=== PATIENT | female | born 1960 | race African-American/Black ===

== ENCOUNTER 2021-08-17 05:02 | Emergency (ER) | payer MEDICARE, MEDICAID ==
[~2021-08-17] VITALS: Ht 160 cm; Wt 80.0 kg
[2021-08-17] MEDS ORDERED: KETOROLAC 60MG/2ML VIAL IM ONE (06:00)
[2021-08-17 06:55] VITALS: BP 128/80
[2021-08-17] MEDS ORDERED: METH-773 MT (07:49)
[2021-08-17 07:58] LABS: *AMPHETAMINES SCREEN URINE NEGATIVE (NEGATIVE); *BARBITURATES SCREEN URINE NEGATIVE (NEGATIVE); *BENZODIAZEPINES SCREEN URINE NEGATIVE (NEGATIVE); *COCAINE SCREEN URINE NEGATIVE (NEGATIVE); CANNABINOID URINE SCREEN NEGATIVE (NEGATIVE); METHADONE URINE SCREEN NEGATIVE (NEGATIVE); OPIATES URINE SCREEN NEGATIVE (NEGATIVE); PHENCYCLIDINE URINE SCREEN NEGATIVE (NEGATIVE)
== END 2021-08-17 08:00 | disposition home or self-care (01) ==
LOC: ER 05:02
DX: G89.29 Other chronic pain (principal); M54.50 Low back pain, unspecified; I10 Essential (primary) hypertension; E11.9 Type 2 diabetes mellitus without complications; J44.1 Chronic obstructive pulmonary disease with (acute) exacerbation; Z72.0 Tobacco use; Z98.890 Other specified postprocedural states
CPT/HCPCS: 72100; 80305; 93970; 96372; 99285; J1885